=== PATIENT | male | born 1950 | race Caucasian/White ===

== ENCOUNTER 2017-01-10 17:02 | Emergency (ER) | payer MEDICARE, BC ==
[~2017-01-10] VITALS: Ht 180.3 cm; Wt 97.5 kg
[2017-01-10] MEDS: TDAP DIPH,PERTUSS,TET VAC/PF 0.5 ML DISP.SYRIN IM ONE (17:26)
--- NOTE | 2017-01-10 17:27 | NUR ---
PT WAS EVALUATED BY DR MORALES. PT WAS D/C TO HOME AFTER PT'S ABRASION CLEANING WITH NS AN GAUZE DRESSING APPLIED. NO BLEEDING. D/C INSTRUCTIONS GIVEN TO THE PT.
[2017-01-10 17:29] VITALS: BP 139/82
[2017-01-10] MEDS ORDERED: TDAP DIPH,PERTUSS,TET VAC/PF 0.5 ML DISP.SYRIN IM ONE (17:34)
== END 2017-01-10 17:30 | disposition home or self-care (01) ==
LOC: ER 17:05
DX: S00.83XA Contusion of other part of head, initial encounter (principal); I10 Essential (primary) hypertension; E11.9 Type 2 diabetes mellitus without complications; E78.00 Pure hypercholesterolemia, unspecified; W18.09XA Striking against other object with subsequent fall, initial encounter; Y93.89 Activity, other specified; Y92.9 Unspecified place or not applicable; Y99.9 Unspecified external cause status
CPT/HCPCS: 90715; A4217; A4663